=== PATIENT | male | born 1960 | race African-American/Black ===

== ENCOUNTER 2019-02-06 07:58 | Day surgery (SDC) | payer SELFPAY ==
[~2019-02-06 07:58] MED LIST: BACTRIM1 TAB PO; CLINDAMYCIN HC150 MG PO; GLIPIZIDE10 M2 PO; GLIPIZIDE5 MG PO; LISINOP/HCTZ1 TA1 PO; LISINOPRIL10 MG PO; METFORMIN HCL1000 MG PO; METFORMIN500 MG PO
[2019-02-06] MEDS ORDERED: PERCOCET 5/325M1 TAB PO (10:28)
[2019-02-06 11:16] VITALS: BP 145/69
== END 2019-02-06 11:30 | disposition home or self-care (01) | DRG 581 ==
LOC: ORM 07:58
PROVIDERS: ATTEND Surgery
PROC: 0KBK0ZZ Excision of Right Abdomen Muscle, Open Approach (ICD-10-PCS; principal; 2019-02-06)
DX: D17.9 Benign lipomatous neoplasm, unspecified (principal); I10 Essential (primary) hypertension; E11.9 Type 2 diabetes mellitus without complications; F17.210 Nicotine dependence, cigarettes, uncomplicated